=== PATIENT | male | born 1955 | race Caucasian/White ===

== ENCOUNTER 2016-12-24 05:28 | Emergency (ER) | payer OTHER ==
[~2016-12-24] VITALS: Ht 177.8 cm; Wt 92.1 kg
[~2016-12-24 05:28] MED LIST: ADVIL200 M2 PO; ALPRAZOLAM0.5 M4 PO; BACTRIM DS TAB1 EACH PO; BUPROPION XL150 MG PO; CIALIS20 M1 PO; CYCLOBENZAPRINE5 M2 PO; GABAPENTIN100 M2 PO; HYDROCODON-ACE1 EAC2 PO; TRAMADOL HCL50 M1 PO; TRAZODONE HCL50 M1 PO
[2016-12-24 05:43] VITALS: BP 135/89
--- NOTE | 2016-12-24 06:01 | ED EAR COMPLAINT ---
History of Present Illness General Chief Complaint: General Adult Stated Complaint: DIZZY, " MY EARS ARE PLUGGED UP" Source: patient Exam Limitations: no limitations Vital Signs & Intake/Output Vital Signs & Intake/Output Vital Signs Date Time Temp Pulse Resp B/P B/P Pulse O2 O2 Flow FiO2 Mean Ox Delivery Rate 12/24 0543 97.9 75 18 135/89 97 Allergies Coded Allergies: NO KNOWN ALLERGIES (02/25/16) Reconcile Medications Alprazolam 0.5 MG TABLET 0.5-1 TAB PO PRN ANXIETY (Reported) Bupropion HCl (Bupropion XL) 150 MG TAB.ER.24H 1 TAB PO TID MENTAL HEALTH ( Reported) Cyclobenzaprine HCl 5 MG TABLET 1 TAB PO TIDPRN PRN MUSCLE SPASMS Gabapentin 100 MG CAPSULE 1 CAP PO TID NERVE PAIN (Reported) Hydrocodone/Acetaminophen (Hydrocodon-Acetaminophen 5-325) 1 EACH TABLET 1 TAB PO PRN PAIN (Reported) Ibuprofen (Advil) 200 MG TABLET 1 TAB PO PRN PAIN (Reported) Ondansetron (Zofran Odt) 4 MG TAB.RAPDIS 1 TAB PO Q6 PRN NAUSEA Sulfamethoxazole/Trimethoprim (Bactrim Ds Tablet) 1 EACH TABLET 1 TAB PO BID Tadalafil (Cialis) 20 MG TABLET 1 TAB PO PRN ED (Reported) Tramadol HCl 50 MG TABLET 1 TAB PO TID PAIN (Reported) Trazodone HCl 50 MG TABLET 1-1.5 TAB PO QPM SLEEP (Reported) Triage Note: PT TO ED C/O DIZZINESS, NAUSEA AND "PLUGGED" EARS SINCE SUNDAY. PT REPORTS SEEING PCP ON SUNDAY AND HAVING WAX TAKEN OUT OF EARS. PT REPORTS DIZZINESS AND "PLUGGED EARS" STAYING THE SAME BUT NAUSEA GETTING WORSE. PT REPORTS FEELING LIKE HE HAS HAD A FEVER. PT DENIES PAIN, CHILLS, VOMITING AND DIARRHEA. Triage Nurses Notes Reviewed? yes Onset: Gradual Duration: week(s): (1) Timing: recent history Injury Environment: home Severity: mild, moderate No Modifying Factors: none Associated Symptoms: HEARING LOSS HPI: This is a 61-year-old male presents to the ER for chief complain of bilateral blocked ears. He states he feels dizzy and has a ringing sensation in his years. Last week he went to his primary care doctor's office to see if they could remove some wax. He said the wax was too hard and prescribed him some drops to take at home. The other days wiped her to take out a small amount of wax. However this morning he states the symptoms became more intense. Patient had some episodes of diaphoresis for the past 2 days but since then has resolved. No documented fever, chest pain or shortness of breath. Past History Travel History Traveled to [place] past 21 day No Medical History Any Pertinent Medical History? see below for history Musculoskeletal: hammertoes Surgical History Surgical History: non-contributory Psychosocial History What is your primary language Malian Tobacco Use: Quit >30 days ago Family History Hx Contributory? No Review of Systems Review of Systems Constitutional: Reports: diaphoresis. Denies: chills, fever. EENTM: Reports: see HPI (HEARING LOSS), ear pain. Respiratory: Denies: cough, short of breath. Cardiovascular: Denies: chest pain. GI: Denies: abdominal pain. Genitourinary: Reports: no symptoms. Musculoskeletal: Reports: no symptoms. Skin: Reports: no symptoms. Neurological/Psychological: Denies: confusion. Hematologic/Endocrine: Denies: bruising, bleeding, polyuria, polydipsia. Immunologic/Allergic: Denies: splenectomy. All Other Systems: Reviewed and Negative Physical Exam Physical Exam General Appearance: well developed/nourished, alert, awake Head: atraumatic, normal appearance Eyes: Bilateral: normal appearance, PERRL, EOMI. Ears: Bilateral: other (B/L CERUMEN IMPACTION). Nose: normal inspection Mouth/Throat: normal mouth inspection, pharynx normal Neck: normal inspection, supple, full range of motion Cardiovascular/Respiratory: normal breath sounds, normal peripheral pulses, regular rate/rhythm Neurologic/Psych: no motor/sensory deficits, awake, alert, normal gait Skin: intact, normal color, warm/dry Progress Differential Diagnoses I considered the following diagnoses in my evaluation of the patient: [CERUMEN IMPACTION, OTITIS MEDIA] Plan of Care: PATIENTS EAR FLUSHED WITH PEROXIDE Initial ED EKG: none Departure Departure Time of Disposition: 700 Disposition: HOME OR SELF CARE Condition: Stable Clinical Impression Primary Impression: Impacted cerumen of both ears Referrals: SIOBHAN PEOPLES,ARCHANA OSPINA (PCP/Family) JUAN PEOPLES,CARMEN Additional Instructions: FOLLOW UP WITH THE END SPECIALIST LISTED. ZOFRAN NEEDED FOR NAUSEA. Departure Forms: Customer Survey General Discharge Information Prescriptions: Current Visit Scripts Ondansetron (Zofran Odt) 1 TAB PO Q6 PRN NAUSEA #10 TAB
[2016-12-24] MEDS ORDERED: ZOFRAN ODT4 M1 PO (06:41)
== END 2016-12-24 07:16 ==
LOC: ERH 05:28
DX: H61.23 Impacted cerumen, bilateral (principal)